=== PATIENT | male | born 1950 | race African-American/Black ===

== ENCOUNTER 2016-08-10 00:26 | Inpatient (IN) ==
[2016-08-10] MEDS ORDERED: Ipratropium/Albuterol Neb 3 ML IH ONE (00:52)
--- NOTE | 2016-08-10 00:59 | Emergency Department Note ---
Disposition Clinical Impression: HCAP (healthcare-associated pneumonia) Sepsis Qualifiers: Sepsis type: sepsis due to unspecified organism Qualified Code(s): A41.9 - Sepsis, unspecified organism Disposition: Admitted As Inpatient Condition: Fair Time of Disposition: 02:40 Chest Pain HPI - General Chief Complaint: ED Chest Pain Stated Complaint: "High BP 199/105 and SOB" Time Seen by Provider: 08/10/16 00:40 Source: patient, family Limitations: no limitations Vital Signs Reviewed: Yes Nursing Notes Reviewed: Yes - History of Present Illness HPI Narrative: 65-year-old male with a history of coronary artery disease status post coronary artery bypass in May 2016 presents to the emergency department for evaluation of chest pain or shortness of breath. Patient states that he was recently admitted to an outside hospital for electrolyte abnormalities secondary to dehydration. Family states that during that time he was found to be a diabetic. Due to his dehydration and electrolyte abnormalities they decided to hold most of his blood pressure medications only restarting some of his medications at half doses. Patient states tonight when he got up to urinate he had difficulty in breathing and some left-sided nonradiating chest pain. He denies any nausea or vomiting. Patient has a known history of ascending thoracic aortic aneurysm which according to the family is stable. Patient is also had a nonproductive cough. Patient denies any other symptoms at this time. Pt complaint: chest pain Onset (ago): hour(s) Duration: constant, now resolved Pain Location: left chest Severity scale (1-10): 0 Quality: sharp Improves with: nothing Worsens with: nothing Associated symptoms: Denies: nausea, vomiting, diaphoresis, dyspnea, palpitations Treatments prior to arrival chest pain: none - Related Data Home Medications Medication Instructions Recorded Confirmed Acetaminophen [Tylenol] 650 mg PO Q6HR PRN 05/31/16 05/31/16 Amiodarone [Cordarone] 200 mg PO BID 05/31/16 05/31/16 Aspirin Enteric Coated [Aspirin EC] 162 mg PO DAILY 05/31/16 05/31/16 Atorvastatin [Lipitor] 80 mg PO HS 05/31/16 05/31/16 Ciprofloxacin HCl [Cipro] 250 mg PO BID MDD 14 05/31/16 05/31/16 Losartan Potassium [Cozaar] 50 mg PO DAILY 05/31/16 05/31/16 Metoprolol [Lopressor] 50 mg PO TID 05/31/16 05/31/16 Previous Rx's Medication Instructions Recorded Clopidogrel [Plavix] 75 mg PO DAILY tablet 03/15/15 Allergies Allergy/AdvReac Type Severity Reaction Status Date / Time No Known Allergies Allergy Verified 03/14/15 22:26 All systems ED: reviewed and negative except as stated. Constitutional: Denies: fever, chills Cardiovascular: Reports: chest pain, dyspnea on exertion. Denies: palpitations , syncope Respiratory: Reports: cough, dyspnea. Denies: wheezes Gastrointestinal: Denies: abdominal pain, nausea, vomiting Musculoskeletal: Denies: back pain Neurological: Denies: headache Chest Pain PMH - Past Medical History Medical history: Reports: coronary artery disease, CVA, hypertension, myocardial infarction Surgical history: Reports: vasectomy Psychiatric history: Reports: no psych history - Social History Smoking Status: Former smoker Alcohol use: Reports: none Drug use: Reports: none Physical Exam - General Limitations: no limitations General appearance: alert, in no apparent distress - Head Head exam: atraumatic, normocephalic, normal inspection - Chest Chest inspection: Present: normal inspection, symmetric chest wall rise - Respiratory Respiratory exam: Present: wheezes (Mild wheezing throughout lung armendariz.) - Cardiovascular Cardiovascular exam: Present: normal rhythm, tachycardia, normal heart sounds - Abdominal Exam Abdominal exam: Present: soft, Non-Tender. Absent: tenderness, distention, guarding, rebound, rigidity - Extremities Exam Extremities exam: Present: pedal edema - Neurological Exam Neurological exam: Present: alert - Skin Skin exam: Present: warm, dry, intact, normal color Course - Reevaluation(s) Reevaluation #1: Discussed findings with patient and family. Chest x-ray is concerning for possible pulmonary vascular congestion versus atypical infectious process. Given the patient's history of cough, dyspnea and chest pain his symptoms are consistent with pneumonia. Given his recent hospitalization we will treat him for healthcare acquired pneumonia and admit him to the hospital for antibiotics and further evaluation. Time: 02:39 Reevaluation #2: Discussed case with hospitalist service, Dr. Sweet. Patient accepted for further evaluation and treatment. Time: 03:25 Vital Signs Temperature 97.5 F L 08/10/16 00:32 Pulse Rate 105 08/10/16 00:32 Respiratory Rate 20 08/10/16 00:32 Blood Pressure 173/100 08/10/16 00:32 O2 Sat by Pulse Oximetry 93 L 08/10/16 00:32 Temperature 97.5 F L 08/10/16 00:32 Pulse Rate 102 08/10/16 02:31 Respiratory Rate 16 08/10/16 02:31 Blood Pressure 142/74 08/10/16 02:31 O2 Sat by Pulse Oximetry 97 08/10/16 02:31 Oxygen Delivery Oxygen Delivery Room Air Chest Pain - Medical Records Medical records reviewed: Yes I reviewed the patient's medical records. - Lab Data Lab results reviewed: Yes I reviewed the patient's lab results. Result diagrams: 08/10/16 01:00 08/10/16 01:00 Lab Results 08/10/16 08/10/16 08/10/16 Range/Units 01:00 01:00 01:00 WBC 18.0 H (4.3-11.1) K/mcL RBC 3.68 L (4.19-5.50) M/mcL Hgb 9.6 L (12.9-16.9) g/dL Hct 31.1 L (37.5-50.1) % MCV 84.5 (83.0-100.0) fL MCH 26.1 L (28.0-33.3) pg MCHC 30.9 L (31.6-35.5) g/dL RDW 18.1 H (11.5-14.5) % Plt Count 447 H (140-400) K/mcL MPV 9.1 L (9.4-12.4) fL Immature Gran % 0.7 (0-4) % Seg Neutrophils % 94.0 % Lymphocytes % 2.9 % Monocytes % 2.3 % Eosinophils % 0.0 % Basophils % 0.1 % Neutrophils # 16.9 H (1.6-8.9) K/mcL Lymphocytes # 0.5 L (0.6-4.6) K/mcL Monocytes # 0.4 (0.0-1.3) K/mcL Eosinophils # 0.0 (0.0-0.6) K/mcL Basophils # 0.0 (0.0-0.2) K/mcL Sodium 134 L (136-145) mEq/L Potassium 4.0 (3.5-4.5) mEq/L Chloride 100 (98-109) mEq/L Carbon Dioxide 20 (19-29) mEq/L BUN 14 (8-26) mg/dL Creatinine 0.82 (0.72-1.25) mg/dL Est GFR ( Amer) > 60 (> 60) Est GFR (Non-Af Amer) > 60 (> 60) BUN/Creatinine Ratio 17 (6-26) Glucose 155 H (70-99) mg/dL Calculated Osmolality 282 (280-300) Calcium 8.7 (8.6-10.8) mg/dL Troponin I 0.02 (0-0.03) ng/mL - Radiology Data Radiology results reviewed: Yes I reviewed the patient's radiology results. - EKG Data EKG attestation: Yes I reviewed and interpreted this EKG. EKG shows normal: sinus rhythm Rate: tachycardia Rhythm: NSR [place]/QRS: RBBB Interpretation: no acute changes Attestation Statement - Attestation Attestation: I, Mathew Littlejohn MD, personally performed a history and physical exam of the patient and discussed their management with the resident. I reviewed the resident's note and agree with the documented findings, medical decision making , and plan of care. 65-year-old male presents to the emergency department with a complaint of increased shortness of breath tonight. Patient was recently in the hospital at [place] and was discharged 2 days ago. Family reports that since coming home he has had increased swelling of his feet and ankles which is getting better. Tonight he complained of some shortness of breath and some intermittent pains in his chest which he states hurt to breathe. He has had some cough. No definite fever. On examination patient is a well-developed well-nourished elderly male in no acute distress. He is alert and oriented. There is no cyanosis or diaphoresis. Breath sounds are decreased but equal bilaterally with some moist bilateral rales. Heart regular rate and rhythm. Abdomen soft and nontender with normal bowel sounds. 1+ pedal edema bilaterally. Labs reviewed. WBC 18 with 94% segs. Chest x-ray shows pulmonary vascular congestion with interstitial pulmonary edema or atypical infection with retrocardiac consolidation. EKG shows a sinus tachycardia occasional PVC, heart rate 107, left axis deviation, right bundle branch block which was present on previous EKG. The hospitalist, Dr. Sweet, was consulted and accepted admission of the patient.
[2016-08-10 01:11] LABS: Basophils % 0.1 %; Hematocrit 31.1 % (37.5-50.1); Hemoglobin 9.6 g/dL (12.9-16.9); Immature Granulocytes % 0.7 % (0-4); Lymphocytes # 0.5 K/mcL (0.6-4.6); Lymphocytes % 2.9 %; Mean Corpuscular HGB Conc 30.9 g/dL (31.6-35.5); Mean Corpuscular Hemoglobin 26.1 pg (28.0-33.3); Mean Corpuscular Volume 84.5 fL (83.0-100.0); Mean Platelet Volume 9.1 fL (9.4-12.4); Monocytes # 0.4 K/mcL (0.0-1.3); Monocytes % 2.3 %; Neutrophils # 16.9 K/mcL (1.6-8.9); Platelet Count 447 K/mcL (140-400); Red Blood Count 3.68 M/mcL (4.19-5.50); Red Cell Distribution Width 18.1 % (11.5-14.5)
[2016-08-10 01:28] LABS: BUN/Creatinine Ratio 17 (6-26); Blood Urea Nitrogen 14 mg/dL (8-26); Calcium 8.7 mg/dL (8.6-10.8); Carbon Dioxide 20 mEq/L (19-29); Chloride 100 mEq/L (98-109); Glucose 155 mg/dL (70-99); Osmolality,Calculated 282 (280-300); Sodium 134 mEq/L (136-145); eGFR For African Americans > 60 (> 60); eGFR For Non-African Americans > 60 (> 60)
[2016-08-10] MEDS ORDERED: Vancomycin 1,000 MG in D5% in Water 250 ML IVPB ONE (02:35)
[2016-08-10] MEDS ORDERED: Piperacillin/Tazobactam 3.375 GM in D5% in Water (Mini-Bag+) 100 ML IVPB ONE (02:35)
[2016-08-10] MEDS ORDERED: Levofloxacin 750 MG/150 ML 750 MG/150 ML BAG IVPB ONE (02:35)
[2016-08-10] MEDS ORDERED: *HR* Morphine 2 MG/ML SYRINGE IVP PRN (04:49)
[2016-08-10] MEDS ORDERED: Naloxone 0.4 MG/ML INJ IVP PRN (04:49)
[2016-08-10] MEDS ORDERED: Ondansetron 4 MG/2 ML VIAL IVP PRN (04:49)
[2016-08-10] MEDS ORDERED: *HR* Dextrose 50 % in Water (Syg) 50 ML SYRINGE IVP PRN (05:01)
[2016-08-10] MEDS ORDERED: Dextrose Gel 15 GM PO PRN ×2 (05:01)
[2016-08-10] MEDS ORDERED: D5% in Water 1,000 ML IV PRN (05:01)
--- NOTE | 2016-08-10 05:11 | Internal Med History&Physical ---
Date of Encounter: 08/10/16 Time of Encounter: 04:45 Assessment and Plan (1) HCAP (healthcare-associated pneumonia) Current visit: Yes Status: Acute 1. Suspect HCAP. Will follow blood cultures and continue antibiotics. 2. Will check for influenza. 3. Oxygen and aerosols as needed. (2) Diabetes mellitus Current visit: Yes Status: Chronic 1. Stop Metformin. 2. Will use SSI and adjust insulin dosing as needed. Qualifiers: Diabetes mellitus type: type 2 Diabetes mellitus complication status: without complication Diabetes mellitus keno terminal operator insulin use: without keno terminal operator use Qualified Code(s): E11.9 - Type 2 diabetes mellitus without complications (3) Chest pain Current visit: No Status: Acute 1. Suspect this is due to pneumonia. 2. Will cycle troponins and obtain ECHO to evaluate LV function. Qualifiers: Chest pain type: chest pain on breathing Qualified Code(s): R07.1 - Chest pain on breathing (4) Hypertension Current visit: No Status: Chronic 1. Continue home meds as appropriate. 2. Monitor and adjust BP meds as needed. Qualifiers: Hypertension type: essential hypertension Qualified Code(s): I10 - Essential (primary) hypertension (5) DVT prophylaxis Current visit: Yes Status: Acute 1. Heparin SQ. Internal Medicine - H&P: HPI Chief complaint: chest pain; cough Admitted From: Emergency Dept Plans for Post Hospital Care: Home History of present illness: Mr. Solorzano is a 65 year old male who presents with cough, chest pain, fever, and shortness of breath over the last few days. He was just hospitalized at [facility] in [place] last week and treated for rhabdomyolysis. I reviewed his records from [place] and notedthe medication list provided by sister. It appears that he developed rhabdomyolysis from STATIN (Lipitor). He was aggressively hydrated and most of his meds were stopped at that point. His renal function recovered and he felt better. He now presents with the above complaints with a cough, chest pain, fever, and shortness of breath. He's never been diagnosed with congestive heart failure. Of note, patient had emergency cardiothoracic surgery in May 2016 for ascending aortic aneurysm. He had AAA repair and coronary bypass grafting. Since then, he has been through inpatient rehabilitation and is currently living with his sister until he has fully recovered. The biggest issue lately he has had has been failure to thrive and poor nutrition. He has been improving lately, however, especially his nutritional intake. Upon my assessment of the patient, he is lying in bed comfortably. He denies any chest pain. He does have a moist and somewhat productive cough. He denies any diaphoresis or any chills at the present time. He denies any vomiting, nausea, or diarrhea. He has been having productive cough of purulent sputum lately. He denies any recent flu exposures. Past Med Surg Social Fam HX - Past Medical History Attestation: Yes The following information was validated with the patient. Source: patient, old records reviewed, obtained from family Medical history: coronary artery disease, CVA, hypertension, myocardial infarction Psychiatric history: no psych history - Past Surgical History Surgical History: coronary bypass (CABG), vasectomy, other (thoracic ascending aortic anerysm repair) - Social History Smoking Status: Former smoker Smokeless Tobacco Status: No Alcohol use: none Drug use: none Current living situation: Home, With Family Activity Level: Uses cane/walker Recent Out of Country Travel Within the Last 8 Weeks: No - Family History Brother Adopted: No Living Status: Still Living Hx Family Cardiac Disorders: No Hx Family Respiratory Disorders: No Hx Family Cancer: Yes Hx Family GI Disorders: No Hx Family Endocrine Disorder: Yes Hx Family Neuromuscular Disorders: No Hx Family Neurologic Disorders: No Hx Family HEENT Disorders: No Hx Family Autoimmune Disorders: No Internal Medicine - H&P: Meds Aspirin 81 mg PO DAILY 08/10/16 [History] Latanoprost [Xalatan] 2.5 ml OP DAILY 08/10/16 [History] Metformin [Glucophage] 500 mg PO BIDWM 08/10/16 [History] Metoprolol Tartrate 50 mg PO BID 08/10/16 [History] Pantoprazole Sodium 40 mg PO DAILY 08/10/16 [History] PredniSONE [Prednisone] 50 mg PO DAILY 08/10/16 [History] Sodium Chloride 2 gm PO TID 08/10/16 [History] Allergies No Known Allergies Allergy (Verified 03/14/15 22:26) - Constitutional Constitutional: chills, fever(s), weakness, no night sweats - EENT Eyes: no blurry vision, no change in vision Ears: no ear pain, no tinnitus Nose, mouth and throat: no nasal congestion, no sinus pressure, no sore throat - Cardiovascular Cardiovascular ROS IM: chest pain, dyspnea, edema, no lightheadedness, no palpitations - Respiratory Respiratory: cough, dyspnea, chest congestion, excessive phlegm production, change in phlegm color, no hemoptysis, no wheezing - Gastrointestinal Gastrointestinal: no abdominal pain, no diarrhea, no hematemesis, no hematochezia, no melena, no nausea, no vomiting - Genitourinary Genitourinary ROS male: dysuria, hematuria, no urinary frequency, no urinary hesitancy, no urinary incontinence - Musculoskeletal Musculoskeletal ROS IM: muscle cramps, muscle weakness, no back pain - Integumentary Integumentary IM: pruritus (abdominal wall -- improved), no jaundice - Neurological Neurological ROS: no disequilibrium, no dizziness, no focal weakness, no frequent falls - Psychiatric Psychiatric: no anxiety, no depression - Endocrine Endocrine IM: no cold intolerance, no heat intolerance, no polydipsia, no polyuria - Hematologic/Lymphatic Hematologic/Lymphatic: no easy bruising, no lymphadenopathy - Allergic/Immunologic Allergic/Immunologic: no wheezing, no GI upset with certain foods - Constitutional Vitals: Temp Pulse Resp BP Pulse Ox 97.5 F L 100 16 147/84 98 08/10/16 04:30 08/10/16 04:30 08/10/16 04:30 08/10/16 04:30 08/10/16 04:30 General appearance: Present: cooperative, mild distress, A&O X 3, pleasant, answers questions appropriately - Head Head exam: Present: atraumatic, normal inspection - Expanded Head Exam Head exam expanded: Absent: abrasion, contusion, general tenderness - Eye Eye exam: Present: EOMI, normal appearance, PERRL. Absent: scleral icterus Pupils: Present: normal accommodation - ENT ENT exam: Present: mucous membranes moist, normal exam, normal oropharynx - Neck Neck exam general surgery: Present: full ROM, supple. Absent: lymphadenopathy, nuchal rigidity, thyromegaly - Expanded Neck Exam Neck exam: Absent: carotid bruit - Respiratory Respiratory exam: Present: rales (Left lower porsterior thorax; + egophony). Absent: accessory muscle use, chest wall tenderness, CTAB, rhonchi, wheezes - Cardiovascular Cardiovascular exam: Present: distant heart sounds, RRR, +S1, +S2. Absent: diastolic murmur, JVD, systolic murmur - GI/Abdominal GI/Abdominal exam: Present: soft. Absent: hepatomegaly, mass, splenomegaly, tenderness - Extremities Exam Extremities exam: Present: full ROM, normal capillary refill, pedal edema (2+ both feet), warm, radial pulses palpable and symetrical. Absent: calf tenderness, joint swelling - Back Exam Back exam: Present: normal inspection. Absent: CVA tenderness (L), CVA tenderness (R) - Neurological Exam Neurological exam: Present: alert, CN II-XII intact, oriented X3, no focal deficits - Psychiatric Psychiatric exam: Present: normal affect, normal mood - Skin Skin exam: Present: dry, warm. Absent: rash Internal Med - H&P Results - Labs CBC & Chem 7: 08/10/16 01:00 08/10/16 01:00 - EKG Data -: EKG Interpreted by Myself EKG shows normal: sinus rhythm Rate: tachycardia - EKG Data EKG comments: 08/10/16 05:19 sinus tachycardia; RBBB - Diagnostic Studies Chest x-ray Status: image reviewed by me (large heart; pulmonary vascular congestion)
[2016-08-10 05:48] LABS: Bilirubin,Urine Negative (Negative); Blood,Urine Negative (Negative); Clarity,Urine Clear (Clear); Color,Urine Yellow (Yellow); Glucose,Urine (UA) Normal (Normal); Ketones,Urine Negative (Negative); Leukocyte Esterase,Urine Negative (Negative); Nitrite,Urine Negative (Negative); PH,Urine 6.5 pH Units (5.0-8.0); Protein,Urine 30 mg/dL (Neg-Trace); Specific Gravity,Urine 1.017 (1.010-1.025); Urobilinogen,Urine Normal (Normal)
[2016-08-10 05:49] LABS: Hyaline Casts,Urine None Seen per lpf (None-Few)
[2016-08-10] MEDS ORDERED: Vancomycin 1,000 MG in D5% in Water 250 ML IVPB SCH (06:00)
[2016-08-10 06:13] LABS: RBC,Urine 0-3 per hpf (0-3); Squamous Epithelial Cell,Urine Few per lpf (None-Few)
[2016-08-10 06:14] LABS: Bacteria,Urine Few per hpf (None-Few)
[2016-08-10] MEDS: *HR* Heparin 5,000 UNIT/ML VIAL SQ SCH ×2 (06:20→18:00)
[2016-08-10 06:34] LABS: Basophils % 0.1 %; Hematocrit 26.6 % (37.5-50.1); Hemoglobin 8.4 g/dL (12.9-16.9); Immature Granulocytes % 0.9 % (0-4); Lymphocytes # 0.3 K/mcL (0.6-4.6); Lymphocytes % 2.1 %; Mean Corpuscular HGB Conc 31.6 g/dL (31.6-35.5); Mean Corpuscular Hemoglobin 26.5 pg (28.0-33.3); Mean Corpuscular Volume 83.9 fL (83.0-100.0); Mean Platelet Volume 8.8 fL (9.4-12.4); Monocytes # 0.5 K/mcL (0.0-1.3); Monocytes % 3.5 %; Platelet Count 341 K/mcL (140-400); Red Blood Count 3.17 M/mcL (4.19-5.50); Segmented Neutrophils % 93.4 %
[2016-08-10 06:38] LABS: INR 1.2; Prothrombin Time 13.5 Seconds (9.4-12.1)
[2016-08-10 06:41] LABS: Activated Partial Thrombo Time 26.7 Seconds (26.0-36.0)
[2016-08-10 06:48] LABS: Hemoglobin A1C 5.7 %
[2016-08-10 06:55] LABS: Alanine Aminotransferase 175 Units/L (0-55); Albumin/Globulin Ratio 0.4 (1.1-2.2); Alkaline Phosphatase 262 Units/L (38-126); Aspartate Amino Transferase 74 Units/L (5-34); BUN/Creatinine Ratio 19 (6-26); Bilirubin,Total 0.5 mg/dL (0.2-1.2); Blood Urea Nitrogen 15 mg/dL (8-26); Calcium 8.4 mg/dL (8.6-10.8); Carbon Dioxide 19 mEq/L (19-29); Chloride 101 mEq/L (98-109); Creatine Kinase 1594 Units/L (30-200); Globulin 4.2 g/dL (2.4-3.5); Glucose 124 mg/dL (70-99); Magnesium 1.1 mg/dL (1.6-2.6); Osmolality,Calculated 280 (280-300); Phosphorous 3.6 mg/dL (2.3-4.7); Potassium 3.7 mEq/L (3.5-4.5); Sodium 134 mEq/L (136-145); Total Protein 5.8 g/dL (6.0-8.3); eGFR For African Americans > 60 (> 60); eGFR For Non-African Americans > 60 (> 60)
[2016-08-10 06:58] LABS: Albumin 1.6 g/dL (3.5-5.0)
[2016-08-10 09:03] LABS: 2009 H1N1 PCR NOT DETECTED (Not Detect); Influenza A PCR Negative (Negative); Influenza B PCR Negative (Negative)
[2016-08-10] MEDS: Insulin LISPRO 300 UNITS/3 ML VIAL SQ SCH ×3 (09:10→16:43)
[2016-08-10] MEDS: predniSONE 20 MG TABLET PO SCH (09:12)
[2016-08-10] MEDS: Aspirin 81 MG TAB.CHEW PO SCH (09:12)
[2016-08-10] MEDS: Levofloxacin 750 MG/150 ML 750 MG/150 ML BAG IVPB SCH (09:13)
[2016-08-10] MEDS ORDERED: Aminoglycoside Consult 1 EACH MC ONE (09:38)
[2016-08-10] MEDS ORDERED: Piperacillin/Tazobactam 3.375 GM in D5% in Water (Mini-Bag+) 100 ML IVPB SCH (12:00)
--- NOTE | 2016-08-10 12:28 | ECHO - Doppler Report ---
Echocardiogram Name: Danish Solorzano Date of Study: 08/10/2016 Date: 1950 Ht: 70.0 in Medical Record#: [id number] Age: 65 Wt: 152.0 lb Gender: Male BSA: 1.86 Order #: [id number] Location: [facility] Room #: 2A14 Reading Physician: Arnav Talley DO, FACC, NELSON LUX Highway Design Engineer: Nasrin Frederick RVT, RDCS Ordering Physician: Louis Holloway MD Primary Physician: Taras Palencia DO Indications: Chest pain Impressions: LVEF 55%. Normal LV chamber size and overall function. Mild concentric left ventricular hypertrophy. Mild segmental left ventricular systolic dysfunction. Mild left ventricular diastolic dysfunction. Atypical septal motion consistent with bundle branch block. Normal right ventricular structure and function. Mild mitral regurgitation. Mild tricuspid regurgitation. Moderate pulmonary hypertension. Estimated RVSP is 51 mmHg. Left Ventricular Wall Motion: Rest Echo Findings The basal inferior wall was hypokinetic. All other wall segments showed normal motion. Findings: Study Quality * Technically adequate exam. ECG Findings * Sinus rhythm with BBB. Left Ventricle * LVEF 55%. * Normal LV chamber size and overall function. * Mild concentric left ventricular hypertrophy. * Mild segmental left ventricular systolic dysfunction. * Mild left ventricular diastolic dysfunction. * Atypical septal motion consistent with bundle branch block. Right Ventricle * Normal right ventricular structure and function. Left Atrium * Mildly dilated left atrium. Right Atrium * Mildly dilated right atrium. Interatrial Septum * No evidence of PFO by color Doppler. Aortic Valve * Trileaflet aortic valve. * Mildly sclerotic aortic valve leaflets. * Trace aortic regurgitation. * No aortic stenosis. Mitral Valve * Mildly thickened mitral valve leaflets. * Mild mitral regurgitation. * No mitral stenosis. Tricuspid Valve * Normal tricuspid valve structure. * Mild tricuspid regurgitation. * Moderate pulmonary hypertension. * Estimated RVSP is 51 mmHg. * Estimated RA pressure is 5 mmHg. Pulmonic Valve * Normal pulmonic valve structure and function. * No pulmonic regurgitation. Aorta * Normally sized aortic root. Pericardium * The pericardium appears normal. IVC * Normal IVC dimensions and inspiratory collapse. Pulmonary Artery * Normal visualized portions of the main pulmonary artery. History Hypertension Diabetes Family History of CAD History of CAD/PTCA Myocardial Infarction Coronary Artery Bypass Graft 2014 a Previous Echo was performed. Measurements: BP: 147/ 84 2D Normal Values IVSd: 1.30 cm 0.6 - 1.0 cm LVIDd: 4.60 cm 3.7 - 5.6 cm LVPWd: 1.30 cm 0.6 - 1.1 cm LVIDs: 3.60 cm 1.5 - 3.6 cm AO: 2.60 cm < 4.0 cm LA: 3.10 cm 2.0 - 4.0cm %FS: 21.70 cm >25 % LA volume: 49 Mitral Valve Peak E:.88 m/sec Peak A:.99 m/sec E/A Ratio:0.9 Aortic Valve AI pressure Half-time: 724.00 msec Tricuspid Valve TV Regurg Peak Grad: 46.00mmHg TV Regurg Peak Nithin: 3.38m/sec Updated by Arnav Talley DO, FACTyrone, NELSON LUX on 08/10/2016 12:23:41 PM electronically signed on 08/10/2016 12:24:34 PM with status of Final Wall Motion Knight: 1=Normal, 2=Hypokinesis, 3=Akinesis, 4=Dyskinesis, 5=Aneurysmal, 6=Hyperkinetic, X=Not Visualized (Blank)=Missing
[2016-08-10] MEDS ORDERED: Vancomycin 1,500 MG in D5% in Water 250 ML IVPB SCH (14:00)
--- NOTE | 2016-08-10 15:28 | Internal Med Progress Note ---
Date of Encounter: 08/10/16 Time of Encounter: 15:25 - Assessment and plan (1) Sepsis Current Visit: Yes Status: Acute Assessment and plan: Sepsis secondary to possible healthcare associated pneumonia but most likely atypical pneumonia, consider viral etiology Check mycoplasma, legionella and respiratory viral panel The patient appears to be more stable Discontinue vancomycin and Zosyn Continue Levaquin Qualifiers: Sepsis type: sepsis due to unspecified organism Qualified Code(s): A41.9 - Sepsis, unspecified organism (2) Rhabdomyolysis due to statin therapy Current Visit: Yes Status: Acute Assessment and plan: Statin wws stopped during his past hospitalization at [facility] Consider restarting hydration, hold for now as the patient is congested and has pulmonary edema Recheck CPK in the morning (3) CHF (congestive heart failure) Current Visit: Yes Status: Acute Assessment and plan: Pulmonary edema due to Acute on chronic systolic and diastolic CHF exacerbation likely secondary to volume overload with IV fluids due to rhabdomyolysis The patient is better compensated at the moment, we will try to avoid Lasix due to rhabdomyolysis at the moment Echocardiogram shows an ejection fraction of 55% with mild segmental left ventricular systolic dysfunction and mild left ventricular diastolic dysfunction , atypical septal motion consistent with bundle branch block Qualifiers: Congestive heart failure type: combined Congestive heart failure chronicity : acute on chronic Qualified Code(s): I50.43 - Acute on chronic combined systolic (congestive) and diastolic (congestive) heart failure (4) HCAP (healthcare-associated pneumonia) Current Visit: Yes Status: Acute (5) Diabetes mellitus Current Visit: Yes Status: Chronic Assessment and plan: Continue insulin sliding scale Qualifiers: Diabetes mellitus type: type 2 Diabetes mellitus complication status: without complication Diabetes mellitus joint terminal attack controller insulin use: without care home use Qualified Code(s): E11.9 - Type 2 diabetes mellitus without complications (6) Hypertension Current Visit: No Status: Chronic Assessment and plan: Stable High risk due to sepsis Qualifiers: Hypertension type: essential hypertension Qualified Code(s): I10 - Essential (primary) hypertension - Time Spent With Patient Greater than 35 minutes - Subjective Interval history: Still feel his short of breath, denies any productive cough, no chest pain, no fevers overnight, no abdominal pain, no dysuria. - Constitutional Vitals: Temp Pulse Resp BP Pulse Ox 97.6 F 84 16 154/85 97 08/10/16 10:58 08/10/16 10:58 08/10/16 10:58 08/10/16 10:58 08/10/16 10:58 General appearance: Present: cooperative, mild distress, A&O X 3, pleasant, answers questions appropriately - Head Head exam: Present: atraumatic, normocephalic - Eye Eye exam: Present: PERRL, conjuntiva pink, sclera anicteric Pupils: Present: PERRL - Neck Neck exam general surgery: Present: supple, trachea midline. Absent: lymphadenopathy - Respiratory Respiratory exam: Present: CTAB, wheezes (Mild diffuse wheezing). Absent: accessory muscle use, rales, rhonchi - Cardiovascular Cardiovascular exam: Present: RRR, +S1, +S2. Absent: diastolic murmur, gallop, rubs, systolic murmur - GI/Abdominal GI/Abdominal exam: Present: normal bowel sounds, soft, no peritoneal signs. Absent: distended, tenderness - Extremities Exam Extremities exam: Present: warm, radial pulses palpable and symetrical. Absent : calf tenderness, cyanotic, pedal edema - Neurological Exam Neurological exam: Present: CN II-XII intact, oriented X3, no focal deficits. Absent: pronater drift, facial droop, speech deficit - Skin Skin exam: Present: dry, intact Internal Medicine: Result - Labs CBC & Chem 7: 08/10/16 06:24 08/10/16 06:24 Labs: Short CBC 08/10/16 Range/Units 06:24 WBC 14.9 H (4.3-11.1) K/mcL Hgb 8.4 L (12.9-16.9) g/dL Hct 26.6 L (37.5-50.1) % Plt Count 341 (140-400) K/mcL Neutrophils # 14.0 H (1.6-8.9) K/mcL BMP 08/10/16 06:24 Sodium 134 L Potassium 3.7 Chloride 101 Carbon Dioxide 19 BUN 15 Creatinine 0.77 Glucose 124 H Calcium 8.4 L Cardiac Enzymes 08/10/16 08/10/16 Range/Units 06:24 13:28 Troponin I 0.03 0.03 (0-0.03) ng/mL Liver Function 08/10/16 Range/Units 06:24 Total Bilirubin 0.5 (0.2-1.2) mg/dL AST 74 H (5-34) Units/L ALT 175 H (0-55) Units/L Alkaline Phosphatase 262 H (38-126) Units/L Albumin 1.6 L (3.5-5.0) g/dL Urine 08/10/16 Range/Units 05:33 Urine Color Yellow (Yellow) Urine Clarity Clear (Clear) Urine pH 6.5 (5.0-8.0) pH Units Ur Specific [place] 1.017 (1.010-1.025) Urine Protein 30 H (Neg-Trace) mg/dL Urine Glucose (UA) Normal (Normal) mg/dL - ABG Interpretation ABG results: PT/INR, D-dimer PT 13.5 Seconds (9.4-12.1) H 08/10/16 06:24 Consult Discharge Plan - Plan Referrals: Taras Palencia DO [Primary Care Provider] -
[2016-08-10 17:31] LABS: Adenovirus Not Detected (Not Detect); Bordetella Pertussis Not Detected (Not Detect); Chlamydophila pneumoniae Not Detected (Not Detect); Coronavirus 229E Not Detected (Not Detect); Coronavirus HKU1 Not Detected (Not Detect); Coronavirus NL63 Not Detected (Not Detect); Coronavirus OC43 Not Detected (Not Detect); Human Metapneumovirus Not Detected (Not Detect); Human Rhinovirus/Enterovirus Not Detected (Not Detect); Influenza A Subtype 2009 H1 Not Detected (Not Detect); Influenza A Untypeable Not Detected (Not Detect); Influenza B Not Detected (Not Detect); Mycoplasma pneumoniae Not Detected (Not Detect); Parainfluenza Virus 1 Not Detected (Not Detect); Parainfluenza Virus 2 Not Detected (Not Detect); Parainfluenza Virus 3 Not Detected (Not Detect); Parainfluenza Virus 4 Not Detected (Not Detect); Respiratory Syncytial Virus Not Detected (Not Detect)
[2016-08-11] MEDS: *HR* Heparin 5,000 UNIT/ML VIAL SQ SCH ×2 (06:00→18:42)
[2016-08-11 06:26] LABS: Hematocrit 27.1 % (37.5-50.1); Hemoglobin 8.4 g/dL (12.9-16.9); Mean Corpuscular Hemoglobin 25.8 pg (28.0-33.3); Mean Corpuscular Volume 83.1 fL (83.0-100.0); Mean Platelet Volume 9.2 fL (9.4-12.4); Platelet Count 382 K/mcL (140-400); Red Blood Count 3.26 M/mcL (4.19-5.50); Red Cell Distribution Width 18.4 % (11.5-14.5)
[2016-08-11 06:42] LABS: BUN/Creatinine Ratio 17 (6-26); Blood Urea Nitrogen 12 mg/dL (8-26); Calcium 8.3 mg/dL (8.6-10.8); Carbon Dioxide 23 mEq/L (19-29); Chloride 101 mEq/L (98-109); Glucose 105 mg/dL (70-99); Osmolality,Calculated 278 (280-300); Potassium 3.7 mEq/L (3.5-4.5); Sodium 134 mEq/L (136-145); eGFR For African Americans > 60 (> 60); eGFR For Non-African Americans > 60 (> 60)
[2016-08-11] MEDS: Insulin LISPRO 300 UNITS/3 ML VIAL SQ SCH ×3 (08:19→17:15)
[2016-08-11] MEDS: Levofloxacin 750 MG/150 ML 750 MG/150 ML BAG IVPB SCH (09:07)
[2016-08-11] MEDS: predniSONE 20 MG TABLET PO SCH (09:07)
[2016-08-11] MEDS: Aspirin 81 MG TAB.CHEW PO SCH (09:08)
--- NOTE | 2016-08-11 12:45 | Internal Med Progress Note ---
Date of Encounter: 08/11/16 Time of Encounter: 12:42 - Assessment and plan (1) Sepsis Current Visit: Yes Status: Acute Assessment and plan: Sepsis secondary to possible healthcare associated pneumonia but most likely atypical pneumonia, consider viral etiology Check mycoplasma, pending legionella and respiratory viral panel were negative for infection The patient appears to be more stable Discontinued vancomycin and Zosyn Continue Levaquin day 3 Qualifiers: Sepsis type: sepsis due to unspecified organism Qualified Code(s): A41.9 - Sepsis, unspecified organism (2) Rhabdomyolysis due to statin therapy Current Visit: Yes Status: Acute Assessment and plan: Statin was stopped during his past hospitalization at [facility] No hydration due to congestion and pulmonary edema Continue fluid restriction CPK came down from the 1200s to the 800s Echocardiogram showed an ejection fraction of 55% with mild concentric left ventricular hypertrophy mild segmental left ventricular systolic dysfunction and mild diastolic dysfunction, moderate pulmonary hypertension with an RVSP of 51 mmHg (3) CHF (congestive heart failure) Current Visit: Yes Status: Acute Assessment and plan: Pulmonary edema due to Acute on chronic systolic and diastolic CHF exacerbation likely secondary to volume overload with IV fluids due to rhabdomyolysis The patient is better compensated at the moment, we will try to avoid Lasix due to rhabdomyolysis at the moment Echocardiogram shows an ejection fraction of 55% with mild segmental left ventricular systolic dysfunction and mild left ventricular diastolic dysfunction , atypical septal motion consistent with bundle branch block Qualifiers: Congestive heart failure type: combined Congestive heart failure chronicity : acute on chronic Qualified Code(s): I50.43 - Acute on chronic combined systolic (congestive) and diastolic (congestive) heart failure (4) HCAP (healthcare-associated pneumonia) Current Visit: Yes Status: Acute (5) Diabetes mellitus Current Visit: Yes Status: Chronic Assessment and plan: Continue insulin sliding scale Qualifiers: Diabetes mellitus type: type 2 Diabetes mellitus complication status: without complication Diabetes mellitus nursing home insulin use: without nursing home use Qualified Code(s): E11.9 - Type 2 diabetes mellitus without complications (6) Hypertension Current Visit: No Status: Chronic Assessment and plan: Stable High risk due to sepsis Qualifiers: Hypertension type: essential hypertension Qualified Code(s): I10 - Essential (primary) hypertension - Time Spent With Patient Greater than 35 minutes - Subjective Interval history: Feeling less short of breath, denies any productive cough, no chest pain, no fevers overnight, no abdominal pain, no dysuria. Does not feel comfortable going home yet but he feels very weak - Constitutional Vitals: Temp Pulse Resp BP Pulse Ox 97.4 F L 94 18 147/80 99 08/11/16 10:43 08/11/16 10:43 08/11/16 10:43 08/11/16 10:43 08/11/16 10:43 General appearance: Present: cooperative, mild distress, A&O X 3, pleasant, answers questions appropriately - Head Head exam: Present: atraumatic, normocephalic - Eye Eye exam: Present: PERRL, conjuntiva pink, sclera anicteric Pupils: Present: PERRL - Neck Neck exam general surgery: Present: supple, trachea midline. Absent: lymphadenopathy - Respiratory Respiratory exam: Present: CTAB, rales (Fine bibasilar crackles). Absent: accessory muscle use, rhonchi, wheezes - Cardiovascular Cardiovascular exam: Present: RRR, +S1, +S2. Absent: diastolic murmur, gallop, rubs, systolic murmur - GI/Abdominal GI/Abdominal exam: Present: normal bowel sounds, soft, no peritoneal signs. Absent: distended, tenderness - Extremities Exam Extremities exam: Present: warm, radial pulses palpable and symetrical. Absent : calf tenderness, cyanotic, pedal edema - Neurological Exam Neurological exam: Present: CN II-XII intact, oriented X3, no focal deficits. Absent: pronater drift, facial droop, speech deficit - Skin Skin exam: Present: dry, intact Internal Medicine: Result - Labs CBC & Chem 7: 08/11/16 05:44 08/11/16 05:44 Labs: Short CBC 08/11/16 Range/Units 05:44 WBC 14.0 H (4.3-11.1) K/mcL Hgb 8.4 L (12.9-16.9) g/dL Hct 27.1 L (37.5-50.1) % Plt Count 382 (140-400) K/mcL BMP 08/11/16 05:44 Sodium 134 L Potassium 3.7 Chloride 101 Carbon Dioxide 23 BUN 12 Creatinine 0.72 Glucose 105 H Calcium 8.3 L - ABG Interpretation ABG results: PT/INR, D-dimer PT 13.5 Seconds (9.4-12.1) H 08/10/16 06:24 Consult Discharge Plan - Plan Referrals: Taras Palencia DO [Primary Care Provider] -
--- NOTE | 2016-08-11 20:22 | Electrocardiograph Report ---
[place] [id number] Test Date: 2016-08-10 Pat Name: Danish Solorzano Department: 103 Room: 2A14 Gender: M Staffing Consultant: : [id number] Requested By: David Godoy Order Number: [id number] Reading MD: Arnav Talley DO Measurements Intervals Violet Rate: 107 P: 67 OK: 136 QRS: -68 QRSD: 136 T: 60 QT: 374 QTc: 437 Interpretive Statements SINUS TACHYCARDIA WITH OCCASIONAL VENTRICULAR PREMATURE COMPLEXES POSSIBLE LEFT ATRIAL ENLARGEMENT LEFT ANTERIOR FASCICULAR BLOCK RIGHT BUNDLE BRANCH BLOCK Electronically Signed On 08-11-2016 20:20:51 EST by Arnav Talley DO
[2016-08-11] MEDS: Latanoprost 2.5 ML BOTTLE BOTH EYES SCH (22:59)
[2016-08-12 05:00] LABS: Hematocrit 28.3 % (37.5-50.1); Hemoglobin 8.7 g/dL (12.9-16.9); Mean Corpuscular HGB Conc 30.7 g/dL (31.6-35.5); Mean Corpuscular Hemoglobin 25.8 pg (28.0-33.3); Mean Platelet Volume 9.2 fL (9.4-12.4); Platelet Count 397 K/mcL (140-400); Red Blood Count 3.37 M/mcL (4.19-5.50); Red Cell Distribution Width 18.7 % (11.5-14.5)
[2016-08-12 05:24] LABS: BUN/Creatinine Ratio 19 (6-26); Blood Urea Nitrogen 15 mg/dL (8-26); Calcium 8.2 mg/dL (8.6-10.8); Carbon Dioxide 24 mEq/L (19-29); Chloride 103 mEq/L (98-109); Glucose 104 mg/dL (70-99); Osmolality,Calculated 285 (280-300); Potassium 3.8 mEq/L (3.5-4.5); Sodium 137 mEq/L (136-145); eGFR For African Americans > 60 (> 60); eGFR For Non-African Americans > 60 (> 60)
[2016-08-12] MEDS: *HR* Heparin 5,000 UNIT/ML VIAL SQ SCH (06:00)
[2016-08-12] MEDS: Insulin LISPRO 300 UNITS/3 ML VIAL SQ SCH ×2 (08:24→12:05)
--- NOTE | 2016-08-12 09:39 | Discharge Summary ---
Date of Encounter: 08/12/16 Time of Encounter: 09:36 - Discharge Diagnosis (1) Sepsis Priority: Primary Status: Acute Comments: Sepsis secondary to possible healthcare associated pneumonia but most likely atypical pneumonia Qualifiers: Sepsis type: sepsis due to unspecified organism Qualified Code(s): A41.9 - Sepsis, unspecified organism (2) Rhabdomyolysis due to statin therapy Priority: Secondary Status: Acute (3) CHF (congestive heart failure) Priority: Primary Status: Acute Comments: Pulmonary edema due to Acute on chronic systolic and diastolic CHF exacerbation likely secondary to volume overload with IV fluids due to rhabdomyolysis Qualifiers: Congestive heart failure type: combined Congestive heart failure chronicity : acute on chronic Qualified Code(s): I50.43 - Acute on chronic combined systolic (congestive) and diastolic (congestive) heart failure (4) HCAP (healthcare-associated pneumonia) Priority: Primary Status: Acute (5) Diabetes mellitus Priority: Secondary Status: Chronic Qualifiers: Diabetes mellitus type: type 2 Diabetes mellitus complication status: without complication Diabetes mellitus intermediate project manager insulin use: without skilled nursing use Qualified Code(s): E11.9 - Type 2 diabetes mellitus without complications (6) Hypertension Priority: Secondary Status: Chronic Qualifiers: Hypertension type: essential hypertension Qualified Code(s): I10 - Essential (primary) hypertension - Discharge Medications Prescriptions: Furosemide [Lasix] 20 mg PO DAILY #30 tablet Levofloxacin [Levaquin] 750 mg PO DAILY #3 tablet PredniSONE [Prednisone] 10 mg PO DAILY 8 Days Home Medications: Aspirin 81 mg PO DAILY 08/10/16 [History] Clopidogrel [Plavix] 75 mg PO DAILY 08/10/16 [History] Latanoprost [Xalatan] 1 drop LEFT EYE HS 08/10/16 [History] Metformin [Glucophage] 500 mg PO BID 08/10/16 [History] Metoprolol Tartrate 50 mg PO BID 08/10/16 [History] Pantoprazole Sodium 40 mg PO DAILY 08/10/16 [History] Furosemide [Lasix] 20 mg PO DAILY #30 tablet 08/12/16 [Rx] Levofloxacin [Levaquin] 750 mg PO DAILY #3 tablet 08/12/16 [Rx] PredniSONE [Prednisone] 10 mg PO DAILY 8 Days 08/12/16 [Rx] Sodium Chloride 2 gm PO BID #0 08/12/16 [Rx] Allergies/Adverse Reactions: Allergies No Known Allergies Allergy (Verified 03/14/15 22:26) Date of admission: 08/10/16 15:23 Primary care physician: Taras Palencia Consults: 08/11/16 07:54 Consult to Physical Therapy [CONS] Routine Comment: Evaluate, develop and implement POC OT [Consult to Occupational Therapy] [CONS] Routine Comment: Evaluate, develop and implement POC - Patient Status Disposition: Home Health Service Condition: Fair Overall status at discharge: patient is progressing back to baseline - Discharge Instructions Follow Up With: Taras Palencia, DO [Primary Care Provider] - (Dr. mcqueen wants the family to call for an appointment...) Additional Instructions: Follow with primary care physician within the next 7 days. Complete 3 more days of Levaquin. Taper prednisone. Continue physical therapy. Continue Lasix 20 mg daily. Follow with cardiology within the next 2-3 weeks. - Diet and Activity Activity: increase activity as tolerated Diet: low fat, low cholesterol Hospital course: Mr. Solorzano is a 65 year old male with a past medical history of AAA repair, coronary artery disease, CVA, hypertension, myocardial infarction, who presented complaining of cough, chest pain, fever, and shortness of breath over the last few days prior to his admission. He was just hospitalized at [facility] in [place] last week and treated for rhabdomyolysis. It appears that he developed rhabdomyolysis from STATIN (Lipitor). He was aggressively hydrated and most of his meds were stopped at that point. His renal function recovered and he felt better. He now presented with the above complaints with a cough, chest pain, fever, and shortness of breath. He's never been diagnosed with congestive heart failure. Of note, patient had emergency cardiothoracic surgery in May 2016 for ascending aortic aneurysm. He had AAA repair and coronary bypass grafting. Since then, he has been through inpatient rehabilitation and is currently living with his sister until he has fully recovered. Statin was stopped during his past hospitalization at [facility]. Did not receive hydration during this hospitalization due to congestion and pulmonary edema Continue fluid restriction. CPK came from the 1500s down to the 800s, denies any muscle pain at the moment. Echocardiogram showed an ejection fraction of 55% with mild concentric left ventricular hypertrophy mild segmental left ventricular systolic dysfunction and mild diastolic dysfunction, moderate pulmonary hypertension with an RVSP of 51 mmHg Discontinued vancomycin and Zosyn legionella and respiratory viral panel were negative for infection. The patient appears to be more stable and he feels better. Continue Levaquin for 3 more days. The patient will be discharged on Lasix 20 mg daily. - Time Spent with Patient Total time spent providing and/or coordinating discharge services: Greater than 30 minutes - Constitutional Vitals: Temp Pulse Resp BP Pulse Ox 97.4 F L 91 16 151/82 95 08/12/16 07:09 08/12/16 07:09 08/12/16 07:09 08/12/16 07:09 08/12/16 07:09 General appearance: Present: cooperative, mild distress, A&O X 3, pleasant, answers questions appropriately - Head Head exam: Present: atraumatic, normocephalic - Eye Eye exam: Present: PERRL, conjuntiva pink, sclera anicteric Pupils: Present: PERRL - Neck Neck exam general surgery: Present: supple, trachea midline. Absent: lymphadenopathy - Respiratory Respiratory exam: Present: CTAB, rales (Minimal bibasilar fine crackles). Absent: accessory muscle use, rhonchi, wheezes - Cardiovascular Cardiovascular exam: Present: RRR, +S1, +S2. Absent: diastolic murmur, gallop, rubs, systolic murmur - GI/Abdominal GI/Abdominal exam: Present: normal bowel sounds, soft, no peritoneal signs. Absent: distended, tenderness - Extremities Exam Extremities exam: Present: pedal edema (+ 1 pitting edema both lower extremities ), warm, radial pulses palpable and symetrical. Absent: calf tenderness, cyanotic - Neurological Exam Neurological exam: Present: CN II-XII intact, oriented X3, no focal deficits. Absent: pronater drift, facial droop, speech deficit - Skin Skin exam: Present: dry, intact
--- NOTE | 2016-08-12 09:53 | Physician Discharge Referral ---
Home Health/Hosp Referral Info Transfer to: Home Health Provider in Charge Post Discharge: PCP - Diagnosis (1) Sepsis Status: Acute (2) Rhabdomyolysis due to statin therapy Status: Acute (3) CHF (congestive heart failure) Status: Acute (4) HCAP (healthcare-associated pneumonia) Status: Acute (5) Diabetes mellitus Status: Chronic (6) Hypertension Status: Chronic - Respiratory Orders Smoking Cessation: Smoking cessation has been advised. For more information, call the [place] Tobacco Quit Line at 9-742-IZGF-NOW. - Diet/Nutrition Diet/Nutrition Orders: Cardiac - Services Needed Following services are medically necessary services: Nursing, Home Health Aide, Physical Therapy, Occupational Therapy Home Care Orders: Follow with primary care physician within the next 7 days. Complete 3 more days of Levaquin. Taper prednisone. Continue physical therapy. Continue Lasix 20 mg daily. Follow with cardiology within the next 2-3 weeks. - Transfer Medications Prescriptions: Furosemide [Lasix] 20 mg PO DAILY #30 tablet Levofloxacin [Levaquin] 750 mg PO DAILY #3 tablet PredniSONE [Prednisone] 10 mg PO DAILY 8 Days Home Medications: Aspirin 81 mg PO DAILY 08/10/16 [History] Clopidogrel [Plavix] 75 mg PO DAILY 08/10/16 [History] Latanoprost [Xalatan] 1 drop LEFT EYE HS 08/10/16 [History] Metformin [Glucophage] 500 mg PO BID 08/10/16 [History] Metoprolol Tartrate 50 mg PO BID 08/10/16 [History] Pantoprazole Sodium 40 mg PO DAILY 08/10/16 [History] Furosemide [Lasix] 20 mg PO DAILY #30 tablet 08/12/16 [Rx] Levofloxacin [Levaquin] 750 mg PO DAILY #3 tablet 08/12/16 [Rx] PredniSONE [Prednisone] 10 mg PO DAILY 8 Days 08/12/16 [Rx] Sodium Chloride 2 gm PO BID #0 08/12/16 [Rx] Allergies/Adverse Reactions: Allergies No Known Allergies Allergy (Verified 03/14/15 22:26) Certification: Further, I certify that my clinical findings support that this patient is homebound (i.e. absences from home require considerable and taxing effort and are for medical reasons or hinduism services or infrequently or short duration when for other reasons) because: Homebound Reason: Patient requires assistance of a person or device to safely leave home Attestation: My signature below is to certify that this patient is under my care and that I, or nurse practitioner, or a physician's management assistant working with me, has a face-to -face encounter with this patient.
[2016-08-12] MEDS: predniSONE 20 MG TABLET PO SCH (10:05)
[2016-08-12] MEDS: Aspirin 81 MG TAB.CHEW PO SCH (10:06)
[2016-08-12] MEDS: Levofloxacin 750 MG/150 ML 750 MG/150 ML BAG IVPB SCH (10:07)
[2016-08-12] MEDS: Latanoprost 2.5 ML BOTTLE BOTH EYES SCH ×2 (10:10→10:17)
[2016-08-12 11:32] VITALS: BP 165/87
[2016-08-15 07:54] LABS: Mycoplasma pneumoniae IgG 0.24 U/L (<=0.09)
== END 2016-08-12 13:16 | disposition home health service (06) | DRG 871 ==
LOC: EMEROO 00:26 → 2ANU 00:26
PROVIDERS: ADMIT Internal Medicine; ATTEND Internal Medicine